=== PATIENT | female | born 1950 | race Caucasian/White ===

== ENCOUNTER 2016-05-18 21:29 | Inpatient (IN) | payer MEDICARE, OTHER ==
--- NOTE | ~2016-05-18 | DS ---
Unit #: [id number] #: [id number] Patient: MARTHA MILLER [id number] [address] [address] [id number] I MR#: [id number] NAME: MARTHA MILLER ROOM: 47 Age: 65 Sex: F Admission Date: 05/19/2016 : 1950 Discharge Date: 05/24/2016 Attending Physician: Shawn Marinelli M.D. Primary Care Physician: Alisa Negro M.D. DISCHARGE SUMMARY FINAL DIAGNOSES 1. Acute diverticulitis with history of diverticulosis. 2. Abdominal pain secondary to above, which is improved. 3. Nausea and vomiting secondary to above, which is improved. 4. Leukocytosis have improved. 5. History of coronary artery disease. 6. History of chronic bronchitis, possible chronic obstructive pulmonary disease. 7. History of percutaneous coronary intervention and stent placement in the past. 8. History of hyperlipidemia. 9. History of cataract. DISCHARGE MEDICATIONS Levaquin 750 mg p.o. daily for 4 days, Flagyl 500 mg p.o. t.i.d. for 4 days, Zofran 4 mg q.8 p.r.n. for nausea and vomiting. Please note, lisinopril is on hold because of the patient's hypotension at this time that may need to be restarted as an outpatient. Oxycodone 15 mg t.i.d. p.r.n., Zantac 150 mg daily, Crestor 40 mg q.h.s., Imdur ER 60 mg daily, tizanidine 4 mg t.i.d. p.r.n., potassium 20 mEq daily, nitroglycerin 0.4 mg sublingual p.r.n. for chest pain., albuterol nebulizer treatment q.i.d., erythromycin 250 mg daily, Spiriva 1 inhaler daily, metoprolol/hydrochlorothiazide 25/12.5 one tablet p.o. daily. CONSULTATION DURING HOSPITALIZATION Dr. Sahu from [facility]. DIAGNOSTIC STUDIES LABORATORY RESULTS: Lab workup on discharge; WBC 10.4, hemoglobin 12.2, hematocrit 38.1, platelet count of 229. BNP 77. Sodium 137, potassium 4.4, chloride 103, BUN 5, creatinine 1.0, calcium 8.6. IMAGING STUDIES: Significant imaging studies done during hospitalization was; 1. CT scan of the abdomen and pelvis, which was done on 05/18/2016, it showed inflammatory changing of the splenic flexure and proximal descending colon to a mild degree. This may reflect short segment diverticulitis, equivocal short segment diverticulitis of the sigmoid colon, appendix is normal, small hiatal hernia, gallbladder surgically absent, chronic antegrade listhesis of L5 on S1, unchanged. 2. Chest x-ray; PA and lateral, which was done most recently yesterday shows no acute finding and no significant change. Unit #: [id number] #: [id number] Patient: [facility] Ms. Martha Miller is a 65-year-old female, who was admitted to the hospital with a complaint of abdominal cramping, nausea, vomiting, and not able to the eat for the few days prior to coming to hospital. The patient was admitted to med-surg unit at [facility], [place]. The patient was diagnosed with acute diverticulitis. She was started on IV Flagyl and Levaquin. Dr. Sahu was consulted. IV Protonix also was started. Pain management was done with IV Dilaudid and antiemetic IV Zofran. The patient had a very slow recovery, but she is doing well at this time, is being discharged home on p.o. antibiotics. The patient did have hypoxia on exertion one day during hospitalization. Nebulizer treatment was given. Chest x-ray was done, which does not show any infiltrate. The patient does have COPD and is a former smoker. Advised to continue nebulizer treatment. The patient is stable from that aspect. OBJECTIVE VITAL SIGNS: On discharge, blood pressure is 124/78, respiratory rate 16, pulse is 79, temperature 98.5. CHEST: Fair air entry. No additional sounds. CVS: S1, S2 positive. Regular rhythm. ABDOMEN: Soft. Mild tenderness. DISCHARGE INSTRUCTIONS 1. The patient is being discharged home in stable condition. 2. Follow up primary care provider in [address] week[address] Sahu in 3 to 4 weeks. 4. Prescription for antibiotic has been written. Dictated by... Deborah Alonzo M.D. SLADE/clemente TD: 05/24/2016 23:32 JOB #: [id number] DISCHARGE SUMMARY Page 1 of 1 X Deborah Alonzo MD DISCHARGE SUMMARY
--- NOTE | ~2016-05-18 | CR63 ---
[facility] A Service of [facility] & [facility] RADIOLOGY TEXT RESULTS PATIENT: BIANCA MILLER LOCATION: [place] [address]- : [birth year] UNIT #: [id number] AGE: [address]: Shawn Marinelli MD SEX: F ORDER DR: [id number] [facility] [address] [place], [place] [address] [id number] I MR#: [id number] Acc #: [id number] NAME: BIANCA MILLER : 1950 SEX: F STUDY DATE/TIME: 05/23/2016 15:41 UNIT: [facility] ROOM: [facility] STUDY DESCRIPTION: CR Chest 2 View Attending Physician: Shawn Marinelli M.D. Ordering Physician: Deborah Alonzo M.D. Primary Care Physician: Alisa Negro M.D. MEDICAL IMAGING REPORT This report is preliminary unless electronic signature is present EXAM PA and lateral chest HISTORY Shortness of air and low oxygen saturation for 1 day. FINDINGS Cardiac size and pulmonary vascularity are within normal limits. Moderate diffuse bilateral interstitial prominence is similar to 10/06/2015. Mild right thoracic curve. Small, calcified mediastinal and bilateral hilar nodes. Small, calcified bilateral granulomas. IMPRESSION 1. No acute findings and no significant change compared to 10/06/2015. 2. Mild bilateral interstitial prominence could be due to mild interstitial scarring versus atelectasis or edema, but there are no focal airspace infiltrates or effusions. Dictated by... Israel Morris M.D. THIS IS AN ELECTRONICALLY VERIFIED REPORT Israel Morris M.D. at 05/23/2016 10:55 PM DFL/psc TD: 05/23/2016 21:40 JOB #: [id number] MEDICAL IMAGING REPORT Page 1 of 1 COPY
--- NOTE | ~2016-05-18 | CO ---
Unit #: [id number] #: [id number] Patient: BIANCA MILLER [id number] [address] [address] [id number] I MR#: [id number] NAME: BIANCA MILLER ROOM: 47 Age: 65 Sex: F Admission Date: 05/19/2016 : 1950 Attending Physician: Shawn Marinelli M.D. Primary Care Physician: Alisa Negro M.D. CONSULTATION REPORT REASON FOR CONSULTATION Acute diverticulitis. HISTORY OF PRESENTING ILLNESS The patient states on Tuesday she began to have intermittent abdominal cramping and pain lasting for about an hour and a half, Tuesday, Tuesday and then began persistent pain yesterday afternoon. Reports alternating bowel habits. Denies fever, chills, chest pain, shortness of breath. However, she has had a persistent cough for several months for which her primary has been treating her for bronchitis. In the ER, CT abdomen and pelvis was consistent with acute diverticulitis. She does report having had previous episodes in the past. Most recent colonoscopy was completed with Dr. Escobar in 2014. PAST MEDICAL HISTORY 1. Hypertension. 2. Asthma. 3. Coronary artery disease, status post stent placemen. 4. History of skin cancer. 5. Hyperlipidemia. 6. (1) . 7. GERD. HOME MEDICATIONS 1. Lisinopril. 2. Metoprolol. 3. Tizanidine. 4. Potassium. 5. Isosorbide. 6. Lasix. 7. Percocet. 8. Nitroglycerin as needed. 9. Crestor. 10. Erythromycin. 11. Spiriva. 12. Albuterol. 13. Ventolin. SOCIAL HISTORY The patient lives at home with her grandson. Light tobacco use. Denies alcohol or illicit drugs. FAMILY HISTORY Reviewed and noncontributory. Unit #: [id number] #: [id number] Patient: BIANCA MILLER ALLERGIES Morphine. REVIEW OF SYSTEMS A complete ten point review of systems was completed and negative except as mentioned in the HPI. PHYSICAL EXAMINATION GENERAL: The patient is a pleasant 65-year-old female, currently in no acute distress. VITAL SIGNS: Temperature is 98.7, pulse is 83, respirations 18, blood pressure 118/61. HEENT: PERRLA. NECK: Supple. CARDIAC: S1, S2. LUNGS: Clear to auscultation. ABDOMEN: Soft, rounded. Significant tenderness. Positive bowel sounds. NEURO: The patient is alert, awake, oriented x3. DIAGNOSTIC STUDIES IMAGING: CT abdomen and pelvis was completed. Again, was consistent with acute diverticulitis. LABORATORY DATA: Chemistries normal. White count 17.3, hemoglobin 12.8, hematocrit 40.0, platelets 251. ASSESSMENT AND PLAN 1. Acute diverticulitis: Continue antibiotics, IV fluids, supportive care for now. Will advance diet to clears as tolerated. Will plan on outpatient colonoscopy at a later date. 2. Hypertension. 3. Coronary artery disease. Thank you for this interesting consult. Will continue to follow. Dictated by... Ariane Rose A.P.R.N. for Marcell Jamison/trever TD: 05/20/2016 08:26 JOB #: [id number] CONSULTATION REPORT Page 1 of 1 X X CONSULTATION REPORT
--- NOTE | ~2016-05-18 | CT4 ---
[facility] A Service of [facility] & [facility] RADIOLOGY TEXT RESULTS PATIENT: BIANCA MILLER LOCATION: [facility] [id number] : [birth year] UNIT #: [id number] AGE: [address]: Shawn Marinelli MD SEX: F ORDER DR: [id number] [facility] [address] [place], [place] [address] [id number] I MR#: [id number] Acc #: [id number] NAME: BIANCA MILLER : 1950 SEX: F STUDY DATE/TIME: 05/18/2016 23:37 UNIT: [facility] ROOM: [facility] STUDY DESCRIPTION: CT Abd and Pelv Wo Cont Attending Physician: Shawn Marinelli M.D. Ordering Physician: Hardeep Taylor D.O. Primary Care Physician: Alisa Negro M.D. MEDICAL IMAGING REPORT This report is preliminary unless electronic signature is present EXAM Abdomen and pelvis CT no contrast 05/18/2016 INDICATIONS 65-year-old female with generalized abdominal pain, cramping, nausea vomiting, cough, redness and edema of the lower extremities for 3 days. TECHNIQUE Noncontrast abdomen and pelvis CT was performed. COMPARISON 12/03/2014. This CT exam was performed with one or more of the following radiation dose reduction techniques: automatic exposure control, adjustment of mA and/or kV according to patient size, and iterative reconstruction. FINDINGS Exam markedly degraded by noncontrast technique. Included lung bases demonstrate emphysematous changes and mild scarring and old healed granulomatous disease. No pericardial effusion or pleural effusions, small hiatal hernia. Aorta unremarkable. Spleen unremarkable. Right adrenal gland normal. There is a benign adenoma in the left adrenal gland unchanged. Pancreas unremarkable gallbladder surgically absent. Liver unremarkable. Kidneys demonstrate no hydronephrosis or radiopaque stone on either side. Probable partially duplicated collecting system on the right incidentally noted. CT pelvis: Bladder unremarkable. There are vascular calcifications in the pelvis. No adnexal mass or drainable fluid collection. There is diverticulosis of the colon and equivocal mild sigmoid diverticulitis. There is short-segment inflammatory change of the splenic flexure and proximal descending colon either representing short-segment diverticulitis [facility] A Service of [facility] & [facility] RADIOLOGY TEXT RESULTS PATIENT: BIANCA MILLER LOCATION: [facility] [id number] : [birth year] UNIT #: [id number] AGE: [address]: Shawn Marinelli MD SEX: F ORDER DR: or inflammatory/infectious colitis. No abscess, free air or bowel obstruction. Inguinal canals are unremarkable. There is levoscoliosis and secondary degenerative change in the thoracolumbar spine. Grade 1 antegrade listhesis of L5 on S1 unchanged. IMPRESSION 1. Inflammatory change of the splenic flexure and proximal descending colon to a mild degree. This may reflect short-segment diverticulitis or inflammatory/infectious colitis. No complicating features on CT. 2. Equivocal short-segment diverticulitis of the sigmoid colon as well without complicating features. 3. Appendix normal. 4. Small hiatal hernia. 5. Gallbladder surgically absent. 6. Chronic antegrade listhesis of L5 on S1 unchanged. Dictated by... Jordon Rosario M.D. THIS IS AN ELECTRONICALLY VERIFIED REPORT Jordon Rosario M.D. at 05/19/2016 9:53 PM Ivone TD: 05/19/2016 07:12 JOB #: [id number] MEDICAL IMAGING REPORT Page 1 of 1 COPY
--- NOTE | ~2016-05-18 | HP ---
Unit #: [id number] #: [id number] Patient: BIANCA MILLER [id number] [address] [place], [place] [address] [id number] I MR#: [id number] NAME: BIANCA MILLER ROOM: 478 Age: 65 Sex: F Admission Date: 05/19/2016 : 1950 Attending Physician: Shawn Marinelli M.D. Primary Care Physician: Alisa Negro M.D. HISTORY AND PHYSICAL CHIEF COMPLAINT Abdominal pain. HISTORY OF PRESENT ILLNESS A 65-year-old female who has multiple medical problems, is known to have diverticulosis and was doing well until Tuesday. Tuesday morning after eating, she started having abdominal cramps. It lasted about one hour, and she did the same thing on Tuesday and even on Tuesday. Yesterday, she ate a hotdog around noon and after that around 3 o'clock she started having worsening pain, worsening cramps. It was not getting better and it continued to increase. The patient came to ER for further evaluation and is being admitted to med/surg unit for acute diverticulitis. According to patient, she has been vomiting and having nausea. No complaint of fever, chills, or regurgitation. She does have constipation alternating with diarrhea most of the time. PAST MEDICAL HISTORY 1. Hypertension. 2. Asthma. 3. Coronary artery disease with a history of PCI and stent placement in the past. 4. History of skin cancer. 5. Hyperlipidemia. 6. Cataract. 7. GERD. HOME MEDICATIONS 1. Lisinopril 10 mg daily. 2. Metoprolol ER 25 mg daily. 3. Tizanidine 4 mg three times a day. 4. Potassium 20 mEq daily. 5. Isosorbide mononitrate 60 mg daily. 6. Furosemide 40 mg daily. 7. Percocet 10/325 t.i.d. p.r.n. 8. Nitroglycerin 0.4 mg sublingual p.r.n. 9. Zantac 150 mg daily. 10. Crestor 40 mg daily. 11. Erythromycin 250 mg daily. 12. Spiriva one puff inhaler daily. 13. Albuterol 3 mL nebulizer four times a day. 14. Ventolin inhaler four times a day. SOCIAL HISTORY The patient lives at home with her grandson. She does have history of Unit #: [id number] #: [id number] Patient: BIANCA MILLER smoking but for the last six to seven years she smokes only off and on. No history of alcohol abuse or drug abuse. FAMILY HISTORY Not significant. ALLERGIES Morphine which causes chest pain and itching. REVIEW OF SYSTEMS No history of dizziness. No syncopal episode. Rest is as per history of presenting illness. No history of chest pain. No palpitations. No orthopnea. No paroxysmal nocturnal dyspnea . She does have bilateral lower extremity venous stasis and has hyperpigmentation and some swelling which is chronic. PHYSICAL EXAMINATION GENERAL: The patient is lying comfortably in bed in no respiratory distress. VITAL SIGNS: Blood pressure is 118/61, respiratory rate 18, pulse is 83, temperature 98.7. On admission, patient's blood pressure was 143/98. HEENT: Eyes: Bilateral eye movements are normal. Pupils are equal and reacting to light. NECK: Supple. Trachea is in midline. No thyromegaly. CHEST: Fair air entry. No additional sounds. CARDIOVASCULAR: S1, S2 positive. Regular rhythm. ABDOMEN: Generalized tenderness is present but more on the left lower quadrant. Bowel sounds are positive. EXTREMITIES: Trace edema is present. Hyperpigmentation is present. CENTRAL NERVOUS SYSTEM: Awake, alert, oriented x3. No focal neurological deficit. DIAGNOSTIC STUDIES LABORATORY: WBC 18.7, hemoglobin 14.7, hematocrit 44.7, and platelet count 290,000. Sodium 134, potassium 4, chloride 101, BUN 14, creatinine 0.8, calcium 8.3. Urinalysis was done in ER and that showed urobilinogen 1. IMAGING: CT scan of the abdomen and pelvis shows inflammatory changes of the splenic flexure and proximal descending colon to a mild degree. Equivocal short segment diverticulitis of the sigmoid colon seen. Small hiatal hernia is seen. ASSESSMENT The patient is being admitted to med/surg unit with: 1. Acute diverticulitis. 2. Abdominal pain, secondary to above. 3. Leukocytosis, secondary to above. 4. Hypertension. 5. Hyperlipidemia. 6. Asthma. 7. History of coronary artery disease. PLAN 1. Admit to med/surg. 2. IV fluids are being started. 3. IV Flagyl 500 mg t.i.d. and Levaquin 750 mg daily is being started. 4. Dr. Sahu will be consulted. Unit #: [id number] #: [id number] Patient: BIANCA MILLER 5. IV Protonix 40 mg daily is being started. 6. Dilaudid IV 0.5 mg q.4 p.r.n. is being started. 7. IV Zofran on p.r.n. basis. 8. Home medications have been reviewed and adjusted. 9. Please refer to progress note for further orders. Dictated by Marcell Lemon TD: 05/19/2016 11:54 JOB #: [id number] HISTORY AND PHYSICAL Page 1 of 1 X Deborah Alonzo MD X HISTORY AND PHYSICAL
[~2016-05-18 21:29] MED LIST: ASPIR-TRIN325 MG PO; FLEXERIL10 MG PO; FUROSEMIDE40 MG PO; HYDROCODON-ACE1 EAC5 PO; LISINOPRIL10 MG PO; METOPROLOL SUCC25 MG PO; NITROSTAT0.4 MG SL; PRAVASTATIN SOD40 MG PO; VITAMIN D250000 UNIT PO
[2016-05-18 21:47] LABS: BASOPHIL# 0.1 X10e3 (0-0.3); BASOPHIL% 0.5 % (0-2.5); DIFF IND YES; EOSINOPHIL% 0.1 % (0.0-7.0); HEMATOCRIT 44.7 % (35.0-45.0); HEMOGLOBIN 14.7 gm/dL (12.0-16.0); LYMPHOCYTE# 1.2 X10e3 (1.0-3.5); LYMPHOCYTE% 6.6 % (17.0-45.0); MEAN CELL VOLUME 86.2 FL (83-96); MEAN CORPUSCULAR HEMOGLOBIN 28.2 PG (28-34); MEAN CORPUSCULAR HGB CONC 32.8 g/dL (30-36); MEAN PLATELET VOLUME 7.9 FL (6.5-11.5); MONOCYTE% 5.3 % (3.0-12.0); NEUTROPHIL# 16.3 X10e3 (1.5-7.1); NEUTROPHIL% 87.5 % (40-75); PLATELET COUNT 290 X10e3 (140-420); RED BLOOD COUNT 5.19 X10e (3.90-5.30); RED CELL DISTRIBUTION WIDTH 15.9 % (11.0-15.5); WHITE BLOOD COUNT 18.7 X10e3 (4.0-10.5)
[2016-05-18 22:22] LABS: URINE SOURCE CLEAN CATCH
[2016-05-18 22:24] LABS: ALBUMIN SERUM 3.9 g/dL (3.5-5.0); BILIRUBIN, DIRECT 0.1 mg/dL (0.0-0.2); BILIRUBIN,INDIRECT 0.4 mg/dL (0.0-0.9); BILIRUBIN,TOTAL 0.5 mg/dL (0.2-2.0); BUN/CREATININE RATIO 17.77; CALCIUM SERUM 9.2 mg/dL (8.4-10.2); CREATININE SERUM 0.9 mg/dL (0.6-1.4); GLOM FILT RATE Estimated 67.1 mL/min (>60); PROTEIN TOTAL SERUM 7.7 g/dL (6.0-8.3)
[2016-05-18 22:27] LABS: URINE APPEARANCE CLEAR; URINE BLOOD NEG (NEG); URINE COLOR DK YELLOW; URINE GLUCOSE NEG (NEG); URINE KETONE NEG (NEG); URINE LEUKOCYTE ESTERASE TRACE (NEG); URINE NITRATE NEG (NEG); URINE PROTEIN NEG (NEG); URINE SPECIFIC GRAVITY 1.016 (1.003-1.035)
[2016-05-18 22:30] LABS: URINE BACTERIA AUWI NEG (NEGATIVE); URINE SQUAMOUS EPITHELIAL CELL OCC /[HPF]; UWBCS1 AUWI 0-2 (0-5)
[2016-05-18 22:36] LABS: CULTURE INDICATED? NO; URINE BILIRUBIN NEG (NEG)
[2016-05-18 22:53] LABS: ANISOCYTOSIS SL; PLATELET ESTIMATE NORMAL (NORMAL); SMUDGE CELLS 2 /100
[2016-05-19 09:21] LABS: BASOPHIL# 0.1 X10e3 (0-0.3); BASOPHIL% 0.4 % (0-2.5); DIFF IND NO; EOSINOPHIL# 0.1 X10e3 (0-0.7); EOSINOPHIL% 0.3 % (0.0-7.0); HEMOGLOBIN 12.8 gm/dL (12.0-16.0); LYMPHOCYTE% 11.5 % (17.0-45.0); MEAN CELL VOLUME 87.2 FL (83-96); MEAN CORPUSCULAR HEMOGLOBIN 27.8 PG (28-34); MEAN CORPUSCULAR HGB CONC 31.9 g/dL (30-36); MONOCYTE# 1.3 X10e3 (0-1.0); MONOCYTE% 7.7 % (3.0-12.0); NEUTROPHIL# 13.8 X10e3 (1.5-7.1); NEUTROPHIL% 80.1 % (40-75); PLATELET COUNT 251 X10e3 (140-420); RED BLOOD COUNT 4.59 X10e (3.90-5.30); RED CELL DISTRIBUTION WIDTH 15.6 % (11.0-15.5); WHITE BLOOD COUNT 17.3 X10e3 (4.0-10.5)
[2016-05-19 09:46] LABS: BUN/CREATININE RATIO 17.5; CALCIUM SERUM 8.3 mg/dL (8.4-10.2); CREATININE SERUM 0.8 mg/dL (0.6-1.4); GLOM FILT RATE Estimated 77.4 mL/min (>60)
[2016-05-19] MEDS ORDERED: LISINOPRIL10 MG PO (10:55)
[2016-05-19] MEDS ORDERED: METOPROLOL ER-1 EACH PO (10:56)
[2016-05-19] MEDS ORDERED: TIZANIDINE HCL4 M1 PO (10:57)
[2016-05-19] MEDS ORDERED: K-TAB ER20 MEQ PO (10:57)
[2016-05-19] MEDS ORDERED: IMDUR-ER60 M1 PO (10:58)
[2016-05-19] MEDS ORDERED: ERYTHROMYCIN250 M1 PO (11:04)
[2016-05-19] MEDS ORDERED: OXYCODONE HCL15 MG PO (11:05)
[2016-05-19] MEDS ORDERED: NITROGLYGERIN0.4 MG SL (11:06)
[2016-05-19] MEDS ORDERED: ZANTAC150 M1 PO (11:06)
[2016-05-19] MEDS ORDERED: CRESTOR40 MG PO (11:07)
[2016-05-19] MEDS ORDERED: SPIRIVA RESPIMAT4 G1 INH (11:07)
[2016-05-19] MEDS ORDERED: ALBUTEROL MININEB NEB (11:08)
[2016-05-19] MEDS ORDERED: ALBUTEROL17 GM INH (11:08)
[2016-05-20 03:44] LABS: HEMATOCRIT 42.7 % (35.0-45.0); HEMOGLOBIN 13.6 gm/dL (12.0-16.0); MEAN CELL VOLUME 88.2 FL (83-96); MEAN CORPUSCULAR HGB CONC 31.7 g/dL (30-36); MEAN PLATELET VOLUME 7.8 FL (6.5-11.5); RED BLOOD COUNT 4.85 X10e (3.90-5.30); RED CELL DISTRIBUTION WIDTH 16.6 % (11.0-15.5); WHITE BLOOD COUNT 14.3 X10e3 (4.0-10.5)
[2016-05-20 04:20] LABS: CALCIUM SERUM 8.9 mg/dL (8.4-10.2); CREATININE SERUM 0.9 mg/dL (0.6-1.4); GLOM FILT RATE Estimated 67.1 mL/min (>60); POTASSIUM 3.8 mmol/L (3.5-5.1)
[2016-05-21 05:36] LABS: BASOPHIL% 0.4 % (0-2.5); EOSINOPHIL# 0.1 X10e3 (0-0.7); EOSINOPHIL% 1.1 % (0.0-7.0); HEMATOCRIT 38.4 % (35.0-45.0); HEMOGLOBIN 12.4 gm/dL (12.0-16.0); LYMPHOCYTE# 2.1 X10e3 (1.0-3.5); LYMPHOCYTE% 18.8 % (17.0-45.0); MEAN CELL VOLUME 87.6 FL (83-96); MEAN CORPUSCULAR HEMOGLOBIN 28.3 PG (28-34); MEAN CORPUSCULAR HGB CONC 32.3 g/dL (30-36); MEAN PLATELET VOLUME 7.6 FL (6.5-11.5); MONOCYTE# 1.1 X10e3 (0-1.0); MONOCYTE% 9.7 % (3.0-12.0); NEUTROPHIL# 7.8 X10e3 (1.5-7.1); PLATELET COUNT 228 X10e3 (140-420); RED BLOOD COUNT 4.38 X10e (3.90-5.30); WHITE BLOOD COUNT 11.2 X10e3 (4.0-10.5)
[2016-05-21 05:42] LABS: DIFF IND NO
[2016-05-22 04:16] LABS: HEMATOCRIT 37.3 % (35.0-45.0); HEMOGLOBIN 11.7 gm/dL (12.0-16.0); MEAN CELL VOLUME 88.2 FL (83-96); MEAN CORPUSCULAR HEMOGLOBIN 27.8 PG (28-34); MEAN CORPUSCULAR HGB CONC 31.5 g/dL (30-36); MEAN PLATELET VOLUME 7.9 FL (6.5-11.5); RED BLOOD COUNT 4.23 X10e (3.90-5.30); RED CELL DISTRIBUTION WIDTH 16.1 % (11.0-15.5); WHITE BLOOD COUNT 11.2 X10e3 (4.0-10.5)
[2016-05-22 04:33] LABS: CALCIUM SERUM 8.6 mg/dL (8.4-10.2); GLOM FILT RATE Estimated 59.1 mL/min (>60); POTASSIUM 4.4 mmol/L (3.5-5.1)
[2016-05-24 04:10] LABS: BASOPHIL% 0.4 % (0-2.5); EOSINOPHIL# 0.2 X10e3 (0-0.7); EOSINOPHIL% 1.9 % (0.0-7.0); HEMATOCRIT 38.1 % (35.0-45.0); LYMPHOCYTE# 2.2 X10e3 (1.0-3.5); LYMPHOCYTE% 21.1 % (17.0-45.0); MEAN CELL VOLUME 88.4 FL (83-96); MEAN CORPUSCULAR HEMOGLOBIN 27.9 PG (28-34); MEAN CORPUSCULAR HGB CONC 31.5 g/dL (30-36); MEAN PLATELET VOLUME 7.8 FL (6.5-11.5); MONOCYTE# 1.1 X10e3 (0-1.0); MONOCYTE% 10.4 % (3.0-12.0); NEUTROPHIL# 6.9 X10e3 (1.5-7.1); NEUTROPHIL% 66.2 % (40-75); PLATELET COUNT 229 X10e3 (140-420); RED BLOOD COUNT 4.31 X10e (3.90-5.30); WHITE BLOOD COUNT 10.4 X10e3 (4.0-10.5)
[2016-05-24 04:11] LABS: DIFF IND NO
[2016-05-24] MEDS ORDERED: FLAGYL PO (11:37)
[2016-05-24] MEDS ORDERED: LEVAQUIN750 M1 PO (11:37)
[2016-05-24] MEDS ORDERED: ZOFRAN PO (11:38)
[2016-08-16] MEDS ORDERED: METOPROLOL SUCC25 MG PO (15:57)
[2016-08-16] MEDS ORDERED: LASIX PO (15:58)
[2016-08-16] MEDS ORDERED: VITAMIN D350000 UNIT PO (15:58)
[2016-08-16] MEDS ORDERED: ZESTRIL10 M1 PO (15:59)
== END 2016-05-24 12:44 | disposition home or self-care (01) | DRG 392 ==
LOC: CED 21:29 → CEDOF 05-19 01:02 → C4C 05-19 03:57
PROVIDERS: Emergency Medicine; Hospitalist; Internal Medicine; Physician Assistant Medical
DX: K57.92 Diverticulitis of intestine, part unspecified, without perforation or abscess without bleeding (principal); I95.9 Hypotension, unspecified; I10 Essential (primary) hypertension; I25.10 Atherosclerotic heart disease of native coronary artery without angina pectoris; J45.909 Unspecified asthma, uncomplicated; Z95.5 Presence of coronary angioplasty implant and graft; K21.9 Gastro-esophageal reflux disease without esophagitis; Z85.828 Personal history of other malignant neoplasm of skin; H26.9 Unspecified cataract; F17.210 Nicotine dependence, cigarettes, uncomplicated; D72.829 Elevated white blood cell count, unspecified; J44.9 Chronic obstructive pulmonary disease, unspecified; E78.5 Hyperlipidemia, unspecified
CPT/HCPCS: 36415; 71020; 74176; 80048; 80076; 81003; 83690; 83880; 85025; 85027; 94640; 94664; 94760; 96365; 96375; 97116; 97163; 99285; C9113; G8978-GP; G8979-GP; G8980-GP; J1170; J1956; J2405; J2550

== ENCOUNTER → 2016-08-25 | Day surgery (SDC) | payer MEDICARE, OTHER ==
[~2016-08-25] MED LIST changes: +ALBUTEROL MININEB NEB; +ALBUTEROL17 GM INH; +CRESTOR40 MG PO; +ERYTHROMYCIN250 M1 PO; +FLAGYL PO; +IMDUR-ER60 M1 PO; +K-TAB ER20 MEQ PO; +LASIX PO; +LEVAQUIN750 M1 PO; +METOPROLOL ER-1 EACH PO; +NITROGLYGERIN0.4 MG SL; +OXYCODONE HCL15 MG PO; +SPIRIVA RESPIMAT4 G1 INH; +TIZANIDINE HCL4 M1 PO; +VITAMIN D350000 UNIT PO; +ZANTAC150 M1 PO; +ZESTRIL10 M1 PO; +ZOFRAN PO
--- NOTE | ~2016-08-25 | OR ---
Unit #: [id number] #: [id number] Patient: BIANCA MILLER [id number] [address] [place], [place] [address] [id number] MR#: [id number] NAME: BIANCA MILLER ROOM: Date of Procedure: 08/25/2016 Admission Date: 08/25/2016 Surgeon: Raghavendra Sahu M.D. : 1950 Attending Physician: Raghavendra Sahu M.D. Primary Care Physician: Alisa Negro M.D. OPERATIVE REPORT PROCEDURES PERFORMED Esophagogastroduodenoscopy with biopsy and colonoscopy to cecum. INDICATIONS FOR PROCEDURE The patient with chronic GERD symptoms, right upper quadrant pain as well as history of polyps undergoing evaluation with upper endoscopy and colonoscopy. MEDICATIONS Monitored anesthesia. POSTOPERATIVE FINDINGS 1. Hiatal hernia. 2. Esophageal ring that is acquired. 3. Small ulcer in the hernia sac, biopsies taken. 4. Gastritis with erosions, biopsies taken. 5. Normal duodenum and distal duodenum. 6. Colonoscopy was completed to cecum with good prep. 7. Diverticulosis. 8. Moderate internal hemorrhoids. 9. No polyps, masses, or colitis. PLAN 1. Symptomatic treatment. PPI therapy assisted. 2. Avoid NSAIDS. 3. Consider right upper quadrant ultrasound as well as CT scan of the abdomen. DESCRIPTION OF PROCEDURE The patient was explained of the procedure, risks, and benefits along with risks and benefits of anesthesia. She was brought to the endoscopy room. Propofol anesthesia was given. Bite block was placed. The scope was passed down the mouth into the esophagus, stomach, duodenum, and distal duodenum. Findings as described. Biopsies taken. Gently, I pulled the scope out of the patient's mouth. She tolerated it well. At this time, she was turned around and repositioned for colonoscopy. Rectal exam was done, which was normal. Colonoscope was lubricated, passed up the rectum, advanced under direct vision all the way to the cecum. Cecum was identified by ileocecal valve and appendiceal orifice. No polyps, masses, or colitis was seen. Findings as described above. I retroflexed in the rectum, internal hemorrhoids noted. Gently, I pulled Unit #: [id number] #: [id number] Patient: GILBERT,BIANCA the scope out of the patient's mouth. She tolerated it well. Dictated by... Marcell Jamison/clemente TD: 08/25/2016 13:21 JOB #: [id number] CC: Willian Negro M.D. OPERATIVE REPORT Page 1 of 1 X Raghavendra Sahu MD X PROCEDURE OPERATIVE NOTE
== END | disposition home or self-care (01) ==
LOC: COPS 08:58
DX: Z12.11 Encounter for screening for malignant neoplasm of colon (principal); K29.50 Unspecified chronic gastritis without bleeding; K44.9 Diaphragmatic hernia without obstruction or gangrene; K22.2 Esophageal obstruction; K57.30 Diverticulosis of large intestine without perforation or abscess without bleeding; K64.8 Other hemorrhoids; E66.9 Obesity, unspecified; I25.2 Old myocardial infarction; I10 Essential (primary) hypertension; J45.909 Unspecified asthma, uncomplicated; F17.210 Nicotine dependence, cigarettes, uncomplicated; Z86.010 Personal history of colon polyps; Z87.442 Personal history of urinary calculi; Z87.01 Personal history of pneumonia (recurrent); Z88.6 Allergy status to analgesic agent; Z90.49 Acquired absence of other specified parts of digestive tract; Z95.5 Presence of coronary angioplasty implant and graft; Z98.890 Other specified postprocedural states; Z79.2 Long term (current) use of antibiotics; Z79.891 Long term (current) use of opiate analgesic; Z79.899 Other long term (current) drug therapy; Z79.51 Long term (current) use of inhaled steroids
CPT/HCPCS: 43239; G0105; 88305; 88312

== ENCOUNTER 2016-08-31 14:51 | Inpatient (IN) | payer MEDICARE, OTHER ==
[~2016-08-31] VITALS: Ht 165.1 cm; Wt 111.2 kg
--- NOTE | ~2016-08-31 | CO ---
Unit #: [id number] #: [id number] Patient: BIANCA MILLER [id number] [address] [address] [id number] I MR#: [id number] NAME: BIANCA MILLER ROOM: 303 Age: 66 Sex: F Admission Date: 08/31/2016 : 1950 Attending Physician: Deborah Alonzo M.D. Primary Care Physician: Alisa Negro M.D. CONSULTATION REPORT REASON FOR CONSULTATION Left lower lobe pneumonia, possible. CHIEF COMPLAINT AND HISTORY OF PRESENT ILLNESS This patient basically is a 66-year-old female with a past medical history significant for obstructive sleep apnea and likely COPD, history of chronic bronchitis, coronary artery disease, history of cataract and skin cancer, who presents with the complaint of abdominal pain, diagnosed with acute pancreatitis, currently on TPN, complaining of left-sided chest discomfort with coughing and significant shortness of breath. I am seeing her at the bedside. She denies any nausea, vomiting, diarrhea and does complain of abdominal pain. PAST MEDICAL HISTORY Obstructive sleep apnea, COPD, coronary artery disease, diverticulosis, dyslipidemia, cataract, skin cancer and gastroesophageal reflux disease. SOCIAL HISTORY The patient quit smoking seven years ago. No alcohol. No drug abuse. FAMILY HISTORY None as per record. MEDICATION As per MAR, has been reviewed. REVIEW OF SYSTEMS Positive pallor. No edema. No signs of any jaundice. The rest are as per history of present illness. The rest of a 12-point review of systems has been reviewed and is negative. PHYSICAL EXAMINATION VITAL SIGNS: Currently, her temperature is 98. Pulse is 74. Respiration 16. Blood pressure 121/70. DIAGNOSTIC STUDIES LABORATORY: BUN and creatinine 6 and 0.05. Amylase is 205 and lipase is 190. Her white count is 15, hemoglobin 11, hematocrit 35. Platelet count is 215. IMAGING: CT abdomen showed left lower lobe effusion and atelectasis. The patient is currently on Zosyn. ASSESSMENT Unit #: [id number] #: [id number] Patient: BIANCA MILLER 1. Acute pancreatitis. 2. Left lower lobe atelectasis, possible pneumonia with some effusion. 3. Obstructive sleep apnea and COPD. PLAN At this point, our plan is to switch the IV antibiotics to meropenem 500 mg IV q.8 hours, discontinue Zosyn, continue oxygen, bronchodilator, CPAP at night, pain management, IV fluid, TPN. The patient will be closely monitored. Please see orders for detailed plan. Thank you very much for this consultation. Dictated by.Jake. Marcell Dale TD: 09/05/2016 15:24 JOB #: [id number] CONSULTATION REPORT Page 1 of 1 X Dario Vasquez MD CONSULTATION REPORT
--- NOTE | ~2016-08-31 | FU ---
[facility] Nutrition Therapy DATE: 09/06/16 Patient: BIANCA MILLER Physician: MIRIAN Address: [address] Room/Bed: [address] [place] [address], Zip: [place] [address] Admit Date: 08/31/16 Date of : [birth year] Height: 5 5 Weight: 244 111 NUTRITION MONITORING/FOLLOW-UP: Reason: TPN follow-up Anthropometrics: ht: 5'5" wt: 244# (111 kg) BMI 36 -Admit weight 238# (108 kg) Labs: Glu 152, BUN 6, Alb 2.5, Accuchecks 111-151, Amlyase 195, Lipase 162, triglycerides 138 (09/04/2016) Meds: TPN (dextrose 25%), clinimix- k+ phos, NaCl, KCl, gluconate; novolog, protonix I&O's: 4791/8879. BM 09/02 Skin: previously noted. Edema: pedal/ankle- trace Estimated Nutrition Needs: 2060-8124 kcal (20-25 kcal/kg) 108-140 g protein (1.0-1.3 g/kg) fluids consistent with kcals or per MD Assessment: Chart reviewed, events noted. Pt seen for TPN follow-up. Pt is currently receiving TPN (dextrose 25%) at 60 mL/hr x 24 hours. Pt is lethargic and not appropriate for nutrition interview at this time. Per chart, the pt's TPN rate is to be increased to 70 mL/hr. No reports of TPN intolerance, see labs above. RD will continue to follow. Dx: Inadequate oral intake r/t current condition, pancreatitis AEB NPO status -IN PROGRESS Intervention: 1. NPO 2. TPN Monitoring, Evaluation and Goals: 1. TPN; once initiated, provide >80% of goal -NOT MET 2. Labs; amylase (not improved), lipase (not improved), triglycerides (not improved/unmeasured) 3. GI; promote regular GI function -NOT MET Recommendations: 1. GRADUALLY increase current TPN (dextrose 25%) to goal rate of 95 mL/hr x 24 hours to provide patient with adequate calories and protein. This rate will provide 1938 non-protein kcal, 2394 total kcal, and 114 g protein. [facility] Nutrition Therapy DATE: 09/06/16 Patient: BIANCA MILLER Physician: MIRIAN Address: [address] [facility] Room/Bed: [address] [place] [address], Zip: [place] [address] Admit Date: 08/31/16 Date of : [birth year] Height: 5 5 Weight: 244 111 2. Continue to monitor glucose and electrolytes. 3. Obtain updated triglyceride level to determine lipid needs. Not recommending lipids at this time d/t pancreatitis. 4. Once medically feasible, advance the pt to a clear liquid diet as tolerated. RD will f/u per protocol as pt is at moderate/severe nutritional risk. Respectfully, MANUEL CORDERO, email marketing intern Keara Navarrete MS, RD, LD [facility] cc: client file
--- NOTE | ~2016-08-31 | CR72 ---
[facility] A Service of [facility] & [facility] RADIOLOGY TEXT RESULTS PATIENT: BIANCA MILLER LOCATION: [facility] 303- : 50 UNIT #: [id number] AGE: [address]: Deborah Alonzo MD SEX: F ORDER DR: [id number] [facility] [address] [place], [place] [address] [id number] I MR#: [id number] #: [id number] NAME: BIANCA MILLER : 1950 SEX: F STUDY DATE/TIME: 09/06/2016 6:31 UNIT: [address] ROOM: [facility] STUDY DESCRIPTION: CR Chest Single View Portable Attending Physician: Deborah Alonzo M.D. Ordering Physician: Dario Vasquez M.D. Primary Care Physician: Alisa Negro M.D. MEDICAL IMAGING REPORT This report is preliminary unless electronic signature is present EXAM Portable chest, 09/06 COMPARISON 05/23/2016 HISTORY Cough, shortness of air and left-sided chest pain for 6 days. FINDINGS A portable view of the chest was obtained. There are low lung volumes with left base atelectasis or infiltrate. The PIC catheter has its tip in the superior vena cava. IMPRESSION There is increased density in the left base consistent with minimal atelectasis or infiltrate, otherwise there is no active disease. Dictated by... David Monzon M.D. THIS IS AN ELECTRONICALLY VERIFIED REPORT David Monzon M.D. at 09/06/2016 11:40 AM Shaq TD: 09/06/2016 10:45 JOB #: [id number] MEDICAL IMAGING REPORT Page 1 of 1 COPY
--- NOTE | ~2016-08-31 | CR2 ---
[facility] A Service of [facility] RADIOLOGY TEXT RESULTS PATIENT: BIANCA MILLER LOCATION: [facility] 303-01 : 50 UNIT #: [id number] AGE: [address]: Deborah Alonzo MD SEX: F ORDER DR: [id number] [facility]. [place], [place] [address] [id number] I MR#: [id number] Acc #: [id number] NAME: BIANCA MILLER : 1950 SEX: F STUDY DATE/TIME: [facility] STUDY DESCRIPTION: CR Abdomen Acute Series Attending Physician: Deborah Alonzo M.D. Ordering Physician: Arpit Rick M.D. Primary Care Physician: Alisa Negro M.D. MEDICAL IMAGING REPORT This report is preliminary unless electronic signature is present EXAM Acute abdomen series 09/08/2016 0745 hours HISTORY 66-year-old with history of pancreatitis, complaining of abdominal pain and shortness of air since April 2016. History of diabetes. COMPARISON CT abdomen 09/03/2016 FINDINGS Upright chest and supine and upright views of the abdomen are performed. There is a right PICC line with tip in SVC just above the right atrium. Lung volumes are low. There is persistent left basilar density likely a combination of consolidation and pleural fluid. This appears similar to CT scan 09/03/2016. The abdominal films demonstrate a nonspecific bowel gas pattern without obstruction. No free air seen. IMPRESSION Persistent left basilar density which is a combination of pleural fluid and consolidation similar to CT abdomen 09/03/2016. There is a nonspecific bowel gas pattern. No obstruction or free air seen. Dictated by... Lilli Moffett M.D. THIS IS AN ELECTRONICALLY VERIFIED REPORT Lilli Moffett M.D. at 09/08/2016 9:02 PM SMM/dillan TD: 09/08/2016 15:34 [facility] A Service of [facility] RADIOLOGY TEXT RESULTS PATIENT: BIANCA MILLER LOCATION: [facility] 303-01 : 50 UNIT #: [id number] AGE: [address]: Deborah Alonzo MD SEX: F ORDER DR: JOB #: [id number] MEDICAL IMAGING REPORT Page 1 of 1 COPY
--- NOTE | ~2016-08-31 | CO ---
Unit #: [id number] #: [id number] Patient: BIANCA MILLER [id number] [facility]. [place], [place] [address] [id number] I MR#: [id number] NAME: BIANCA MILLER ROOM: 303 Age: 66 Sex: F Admission Date: 08/31/2016 : 1950 Attending Physician: Deborah Alonzo M.D. Primary Care Physician: Alisa Negro M.D. Consultation Date: 09/04/2016 CONSULTATION REPORT HISTORY OF PRESENT ILLNESS Ms. Miller is a 66-year-old white female, presented with what appears to be pancreatitis of the tail of the pancreas with possible splenic vein thrombosis with increased mid epigastric left upper quadrant abdominal pain. She had colonoscopy, but 10 days ago which showed diverticular disease. She did have a recent bout of diverticulitis in April, requiring just intravenous antibiotics. The patient also has had previous GI issues with bowel obstruction and previous appendectomy and cholecystectomy. PAST MEDICAL HISTORY See notes. ALLERGIES She is allergic to morphine. HOME MEDICATIONS Noted and listed. PHYSICAL EXAMINATION Cooperative, alert white female. 2 to 3+ midepigastric left upper quadrant tenderness with slight guarding. PLAN At this time, it appears that the patient needs better pain control for her pancreatitis. I would continue the TPN. We will discuss do not think at this point in time she needs any surgical intervention, although, is still a possibility. We will follow very closely. Dictated by... Marcell Maciel/clemente TD: 09/06/2016 12:52 JOB #: [id number] Unit #: [id number] #: [id number] Patient: BIANCA MILLER CONSULTATION REPORT Page 1 of 1 X Andrew Valentine MD X CONSULTATION REPORT
--- NOTE | ~2016-08-31 | CT7 ---
[facility] A Service of [facility] & [facility] RADIOLOGY TEXT RESULTS PATIENT: BIANCA MILLER LOCATION: [facility] 303-01 : 50 UNIT #: [id number] AGE: [address]: Deborah Alonzo MD SEX: F ORDER DR: [id number] [facility] [address] [facility]. [place], [place] [address] [id number] I MR#: [id number] Acc #: [id number] NAME: BIANCA MILLER : 1950 SEX: F STUDY DATE/TIME: 09/08/2016 22:10 UNIT: C3A PCU ROOM: 303 STUDY DESCRIPTION: CT Abdomen Wo Cont Attending Physician: Deborah Alonzo M.D. Ordering Physician: Raghavendra Sahu M.D. Primary Care Physician: Alisa Negro M.D. MEDICAL IMAGING REPORT This report is preliminary unless electronic signature is present EXAM CT abdomen without contrast. INDICATIONS Upper abdominal pain since 08/25/2016 with nausea. PROCEDURE Unenhanced CT of the abdomen. This CT exam was performed with one or more of the following radiation dose reduction techniques: automatic exposure control, adjustment of mA and/or kV according to patient size, and iterative reconstruction. COMPARISON 09/03/2016 FINDINGS Small left pleural effusion is slightly smaller than on the prior and there is persistent, but improving, atelectasis in the left lung base. There are several scattered low-attenuation lesions throughout the liver. These were not seen on the previous study. Indexed lesion in the inferior right lobe in segment 6 measures 2.3 cm. Second indexed lesion towards the dome of the liver measures 1.7 cm. The spleen, kidneys, adrenal glands show no acute abnormality. Previous cholecystectomy. Redemonstration of inflammatory change in the left upper quadrant, probably related to acute pancreatitis in the tail of the pancreas. There are organizing pseudocysts in the left upper quadrant, which are new. One pseudocyst in the gastrosplenic ligament measures up to a 10.1 cm. The bowel loops are nondilated. No aggressive appearing bone lesion. [facility] A Service of [facility] & [facility] RADIOLOGY TEXT RESULTS PATIENT: BIANCA MILLER LOCATION: [facility] 303-01 : 50 UNIT #: [id number] AGE: [address]: Deborah Alonzo MD SEX: F ORDER DR: IMPRESSION 1. Redemonstration inflammatory change left upper quadrant of the abdomen probably related to acute pancreatitis in the tail of the pancreas. There are organized pseudocysts in the left upper quadrant new compared with the prior and detailed above. 2. Multifocal new hypodense lesions scattered throughout the liver, nonspecific, but their rapid development favors against malignancy. These could represent multifocal hepatic abscesses. They would be better characterized with contrast enhanced CT or MRI. 3. Other findings detailed above. 1. Dictated by... Ganesh Holguin M.D. THIS IS AN ELECTRONICALLY VERIFIED REPORT Ganesh Holguin M.D. at 09/09/2016 9:54 PM BEV/yony TD: 09/09/2016 07:47 JOB #: [id number] MEDICAL IMAGING REPORT Page 1 of 1 COPY
--- NOTE | ~2016-08-31 | FU ---
[facility] Nutrition Therapy DATE: 09/09/16 Patient: BIANCA MILLER Physician: MIRIAN Address: [address] Room/Bed: [address] [place] [address], Zip: [place] [address] Admit Date: 08/31/16 Date of : 50 Height: 5 5 Weight: 245 111.2 NUTRITION MONITORING/FOLLOW-UP: Reason: TPN follow-up Admitting Dx: 66 y/o female admitted with acute pancreatitis Anthropometrics: Ht: 65", admission wt: 108 kg, current wt: 111.2 kg, BMI: 39 (stage II obese; based on admission wt) Labs: Glucose 169, POC 151-183, Prealbumin 5.0 (09/04), Triglycerides 117 (09/08; WNL), amylase 187 (trending down), lipase 116 (trending down), Alk phos 127, lytes WNL Meds: TPN + clinimix, Vit D, IV Levaquin, Kphos, Kcl, Nacl, phenergan prn, gluconate, novolog (low SSI), protonix GI: BM 09/06, reports abdominal pain/nausea with clear liquids this AM Skin: No change, trace edema BLE Estimated Nutrition Needs: 5145-0359 kcals/day (20-25 kcals/kg admission weight) 108-140 g protein/day (1-1.3 g/kg admission weight) Fluids per MD Assessment: Chart reviewed, events noted. Oral diet advanced to clear liquids 2 days ago (09/07) however the patient reports only tolerating sips of juice and bites of jello with resulting abdominal pain and nausea. 09/08 pharmacy note reviewed- patient continues on same TPN regimen with 25% dextrose, 5% AA solution, now at goal rate of 95 ml/hr per RD recommendations. Mild hyperglycemia noted, lytes WNL. Pharmacy noted lipids being held due to pancreatitis, however IV lipids do not stimulate the pancreas and triglycerides are WNL, so no need to hold lipids. Suggest cycling 20% 250 ml lipids q 48-72 hours to prevent fatty acid deficiency, as the patient has been on TPN approx. 9 days. Ideally, the patient would have an NJ tube. See nutrition dx, goals and RD recs below. Alessandro eval has been placed. Will continue to follow. Dx: Inadequate oral intake r/t acute pancreatitis AEB not tolerating clear liquids, need for TPN - ACTIVE Intervention: NJT placement, decrease TPN goal rate and add lipids Monitoring, Evaluation and Goals: 1. TPN to provide > 80% estimated nutritional needs - MET [facility] Nutrition Therapy DATE: 09/09/16 Patient: BIANCA MILLER Physician: MIRIAN Address: [address] [place] [address] Room/Bed: [address] [place] [address], Zip: [place] [address] Admit Date: 08/31/16 Date of : [birth year] Height: 5 5 Weight: 245 111.2 2. Labs; lytes will remain WNL, glucose < 200 mg/dL, lipase/amylase will continue to improve, LFT's/triglycerides will remain WNL, prealbumin will improve -IN PROGRESS 3. PO diet tolerance will improve - NEW GOAL 4. GI function will normalize - NOT MET, IN PROGRESS Monitor: Per protocol, criteria to determine if above goals met Recommendations: 1. Suggest placing NJ tube and starting trickle feeds with Jevity 1.5 @ 20 ml/hr. If tolerated, increase rate by 10 ml q 12 hours until goal rate of 70 ml/hr is reached, to provide 2520 kcals, 113 g protein and 1277 ml water. Free water flushes per MD once at goal rate. As EN rate increases, decrease TPN rate accordingly. 2. Decrease TPN to new goal rate of 90 ml/hr and add 20% 250 ml IV lipids q 48-72 hours to prevent fatty acid deficiency. Triglycerides are WNL and IV lipids do not stimulate the pancreas. This TPN regimen will provide: -1836 dextrose kcals (GUR = 3.5) -108 g protein (1.0 g/kg) -2268 total kcals (21 kcals/kg) -Additional 500 kcals from lipids on lipid days 3. Continue to trial clear liquids. Advance to full liquids, then low-fat diet as tolerated per MD. If patient begins tolerating clear liquids better suggest adding Ensure Clear BID to provide additional protein. 4. Optimize insulin regimen to promote adequate blood glucose control. Consider changing SSI to medium correction scale if hyperglycemia persists. 5. Replace lytes prn and continue to monitor triglycerides, lipase, amylase, LFT's and prealbumin. Status: Moderate nutrition risk Respectfully, Jesika Engel RD, LD [facility] Nutrition Therapy DATE: 09/09/16 Patient: BIANCA MILLER Physician: MIRIAN [facility] Room/Bed: [address] [place] [address], Zip: [place] [address] Admit Date: 08/31/16 Date of : [birth year] Height: 5 5 Weight: 245 111.2 Food and Nutritional Services [facility] cc: client file
--- NOTE | ~2016-08-31 | US6 ---
[facility] A Service of [facility] & [facility] RADIOLOGY TEXT RESULTS PATIENT: BIANCA MILLER LOCATION: [facility] 303- : 50 UNIT #: [id number] AGE: [address]: Deborah Alonzo MD SEX: F ORDER DR: [id number] [facility] [address] [facility]. [place], [place] [address] [id number] I MR#: [id number] #: [id number] NAME: BIANCA MILLER : 1950 SEX: F STUDY DATE/TIME: 09/03/2016 12:45 UNIT: [address] ROOM: [facility] STUDY DESCRIPTION: US Abdominal Limited Attending Physician: Deborah Alonzo M.D. Ordering Physician: Deborah Alonzo M.D. Primary Care Physician: Alisa Negro M.D. MEDICAL IMAGING REPORT This report is preliminary unless electronic signature is present EXAM Right upper quadrant ultrasound, 09/03/2016. HISTORY Right upper quadrant abdominal pain for 8 years worsening in the past 4 days. FINDINGS The liver demonstrates an increase in echotexture with attenuation of the ultrasound beam characteristic of fatty infiltration. The gallbladder is surgically absent. There is mild intra and extrahepatic biliary ductal dilatation with the common duct reaching a maximum diameter of 1 cm. No obstructing mass or calculus is seen but the distal aspect of the common duct is obscured by bowel gas. If there is clinical concern for choledocholithiasis consider correlation with MRCP. The pancreas is normal in appearance. The right kidney is normal. IMPRESSION 1. Status post cholecystectomy with mild intra and extrahepatic biliary ductal dilatation of unknown etiology. No obstructing mass or calculus is seen but the distal aspect of the common bile duct is obscured by bowel gas. Clinical correlation is recommended. Consider correlation with MRCP. 2. Fatty infiltration of the liver. STAT * RESULT Dictated by... Abelardo Nunes M.D. THIS IS AN ELECTRONICALLY VERIFIED REPORT [facility] A Service of [facility] RADIOLOGY TEXT RESULTS PATIENT: BIANCA MILLER LOCATION: [facility] 303-01 : [birth year] UNIT #: [id number] AGE: [address]: Deborah Alonzo MD SEX: F ORDER DR: Abelardo Nunes M.D. at 09/03/2016 5:05 PM EZEKIEL/marcela TD: 09/03/2016 16:01 JOB #: [id number] MEDICAL IMAGING REPORT Page 1 of 1 COPY
--- NOTE | ~2016-08-31 | DS ---
Unit #: [id number] #: [id number] Patient: MARTHA MILLER [id number] [place], [place] [address] [id number] I MR#: [id number] NAME: MARTHA MILLER ROOM: 303 Age: 66 Sex: F Admission Date: 08/31/2016 : 1950 Discharge Date: 09/09/2016 Attending Physician: Deborah Alonzo M.D. Primary Care Physician: Alisa Negro M.D. DISCHARGE SUMMARY FINAL DIAGNOSES 1. Acute severe pancreatitis. 2. 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 3. Possible liver abscesses versus metastasis. 4. Splenic vein thrombosis. 5. Acute hypoxic respiratory failure. 6. Pneumonia. 7. Anemia. 8. Morbid obesity. 9. History of coronary artery disease, status post percutaneous coronary intervention and stent placement. 10. History of hyperlipidemia. 11. History of gastroesophageal reflux disease and hiatal hernia. 12. History of diverticulosis. DISCHARGE MEDICATIONS 1. Total parenteral nutrition. Patient is n.p.o. and is on TPN at this time. 2. Levaquin 750 mg q.24 hours. 3. Vitamin D 50,000 units weekly. 4. Nitroglycerin 0.4 mg sublingual p.r.n. for chest pain. 5. Imdur ER 60 mg daily. 6. Sodium chloride nebulizer treatment every 8 hours. 7. Potassium 20 mEq daily. 8. IV Protonix 40 daily. 9. IV Dilaudid 1-2 mg q.3 p.r.n. for pain. 10. Accu-Cheks a.c. and at bedtime with low-dose sliding scale. 11. Zestril 10 mg daily. 12. Lipitor 80 mg daily. 13. Toprol 25 mg every evening. 14. Zofran 4 mg IV q.4 p.r.n. for nausea and vomiting. 15. Lovenox 40 mg subcutaneous daily. 16. Spiriva 18 mcg inhaler daily. 17. Albuterol nebulizer treatment q.i.d. and q.[address] Dr. Dario Vasquez and Dr. Comer from pulmonary services. 2. Dr. Andrew Valentine from [facility]. 3. Dr. Raghavendra Sahu from GI services. DIAGNOSTIC STUDIES LABORATORY ON DISCHARGE: Sodium 139, potassium 4.4, chloride 102, BUN 13, creatinine 0.6, alkaline phosphatase 127, AST 33, and ALT 25. Lipase is 116 and amylase 187. Magnesium 2.2. CBC shows WBC 14.4, hemoglobin 11.8, Unit #: [id number] #: [id number] Patient: MARTHA MILLRE hematocrit 38, and platelet count of 259,000. Glucose is 186. Lipid profile shows total cholesterol 133, triglycerides 117, LDL 84, and HDL 26. C-reactive protein is elevated to 4. C-reactive protein on admission was 20.3. Blood cultures done on August 31, 2016, show no growth x2. IMAGING: CT scan of the abdomen without contrast, most recent one done on September 08, 2016, shows re-demonstration of inflammatory change left upper quadrant of the abdomen probably related to acute pancreatitis in the tail of the pancreas. There are organized pseudocysts in the left upper quadrant new compared with the prior and detailed above. Multifocal new hypodense lesions scattered throughout the liver, nonspecific, but their rapid development favors against malignancy. These could be multifocal hepatic abscesses. Chest x-ray done on September 06, 2016, shows increased density in the left base consistent with minimal atelectasis or infiltrate. Please note, patient has had three CT scans of the abdomen in the hospital. HOSPITAL COURSE Ms. Martha Miller is a 66-year-old obese female who was admitted with the complaint of abdominal pain. There was a question of diverticulitis. Patient was admitted to telemetry unit and diagnosed with acute on chronic abdominal pain, acute pancreatitis, leukocytosis, and possible diverticulitis. Patient was started on antibiotics. Dr. Sahu was consulted. Patient recently had EGD and colonoscopy done on August 25, 2016, which showed a hiatal hernia, esophageal ring that is acquired, small ulcer in the hernia sac, gastritis with erosions, and normal duodenum and distal duodenum. Colonoscopy was completed to cecum with good prep and showed diverticulosis, moderate internal hemorrhoids, and no polyps, masses, or colitis. [facility] was also consulted for the acute abdomen, but that was most likely from pancreatitis. Patient has continued on IV fluid hydration, pain management, and antiemetics, but has not improved much. Patient was started on TPN. Patient tried clear liquids, but that made her abdominal pain worse. Patient still has leukocytosis. Repeat CT scan of the abdomen shows worsening of pancreatitis, possible liver abscesses, and development of pseudocysts. Dr. Sahu has talked to Dr. Cruz. Patient will be transferred to [facility] for further treatment and management. During hospitalization, patient did have acute hypoxic respiratory failure and was diagnosed with pneumonia. Dr. Vasquez was consulted, and patient is on IV antibiotic, oxygen, and nebulizer treatment. Patient does have a history of chronic bronchitis and possible COPD. Patient is stable and is being transferred to [facility]. PHYSICAL EXAMINATION ON DISCHARGE VITAL SIGNS: Blood pressure is 135/80, respiratory rate 18, pulse 59, temperature 97.5, and oxygen saturation is 91%. HEENT: Head is normocephalic. CHEST: Fair air entry. Decreased at the bases. Rales are positive. CARDIOVASCULAR: S1 and S2 positive. Regular rhythm. ABDOMEN: Tenderness is present in left upper quadrant and right upper quadrant. Bowel sounds are positive. EXTREMITIES: Trace edema. DISCHARGE INSTRUCTIONS Unit #: [id number] #: [id number] Patient: MARTHA MILLER 1. Patient is being discharged to [facility] under Dr. Marinelli's care. 2. Dr. Arnold Cruz to consult. 3. Infectious Disease to consult. 4. Continue pain management, hydration, and antiemetics. 1. Dictated by... Marcell Lemon TD: 09/09/2016 14:09 JOB #: [id number] DISCHARGE SUMMARY Page 1 of 1 X Deborah Alonzo MD DISCHARGE SUMMARY
--- NOTE | ~2016-08-31 | XA166 ---
[facility] A Service of [facility] & [facility] RADIOLOGY TEXT RESULTS PATIENT: BIANCA MILLER LOCATION: C3A 303- : 50 UNIT #: [id number] AGE: [address]: Deborah Alonzo MD SEX: F ORDER DR: [id number] [facility] [address] [place], [place] [address] [id number] I MR#: [id number] Acc #: [id number] NAME: BIANCA MILLER : 1950 SEX: F STUDY DATE/TIME: 09/03/2016 14:53 UNIT: C3A PCU ROOM: 303 STUDY DESCRIPTION: XA PICC Line Placement WO Port Attending Physician: Deborah Alonzo M.D. Ordering Physician: Raghavendra Sahu M.D. Primary Care Physician: Alisa Negro M.D. MEDICAL IMAGING REPORT This report is preliminary unless electronic signature is present EXAM PICC line insertion; 09/03/2016. HISTORY IV access needed. PRE-PROCEDURE The procedure was explained to the patient and/or patient utility sales representative including risks, benefits, potential complications and potential for alternative forms of treatment. Informed consent was obtained, and prior to initiating the procedure a formal timeout procedure was performed. PROCEDURE Using full standard sterile barrier technique, including caps, gowns, gloves, masks, as well as sterile skin preparation and standard sterile draping, the right arm was prepped and draped in the usual fashion, and real-time sterile ultrasound guidance was used to localize an arm vein and to confirm vessel patency. A hard copy ultrasound image was recorded. After local anesthesia with 1% Xylocaine, the vein was punctured using real-time sterile ultrasound guidance, and an 0.018 guidewire was advanced into the superior vena cava, using fluoroscopic guidance. A 5-[place]izen [place] dual-lumen PICC was then measured and deployed with the tip positioned in the superior vena cava. The position of the line was documented with a radiographic image. The line was secured in place with an adhesive dressing and an antibiotic patch was applied. Total fluoro time was 0.1 minutes. IMPRESSION Successful placement of a 5-[place]izen [place] dual-lumen PowerPICC via the right arm under ultrasound and fluoroscopic guidance. The tip of the PICC is in good position in the superior vena cava. [facility] A Service of [facility] RADIOLOGY TEXT RESULTS PATIENT: BIANCA MILLER LOCATION: [facility] 303-01 : 50 UNIT #: [id number] AGE: [address]: Deborah Alonzo MD SEX: F ORDER DR: A single fluoroscopic spot image was obtained. Dictated by... Des Parsons M.D. THIS IS AN ELECTRONICALLY VERIFIED REPORT Des Parsons M.D. at 09/08/2016 10:05 AM MAGDALENO/merrill TD: 09/03/2016 19:13 JOB #: [id number] MEDICAL IMAGING REPORT Page 1 of 1 COPY
--- NOTE | ~2016-08-31 | A ---
[facility] Therapy DATE: 09/03/16 Patient: BIANCA ANGELA Physician: MIRIAN Address: [address] Room/Bed: [address] [place] [address], Zip: [place] [address] Admit Date: 08/31/16 Date of : 50 Height: 5 5 Weight: 238 108.4 NUTRITIONAL ASSESSMENT: REASON: TPN 66 y/o female admitted for pancreatitis, abd pain PMH: diverticulitis, CAD, GERD, HLD, ?COPD Anthropometrics: ht: 5'5" wt: 238# (108 kg) BMI 39 Labs: Alb 3.0, Lip 158, GFR 58.7 Meds: TPN (per pharmacy), phenergan, Vitamin D, lovenox, lipitor, zosyn, dextrose 5% I/O & Bowel function: 1260/1300. BM 09/01 Skin Integrity: Redness- BLE, abd folds. Edema- BLE Estimated Nutrition Needs: 0644-2806 kcal (20-25 kcal/kg) 108-140 g protein (1.0-1.3 g/kg) fluids consistent with kcal needs or per MD Diet: NPO Assessment: Chart reviewed, events noted. Pt admitted for pancreatitis. RD spoke with pharmacist regarding TPN, as pt is off of floor at time of RD visit. RD spoke with RN, and the pt is currently getting a PICC line placed for TPN access. PMH noted above. RD will follow up for patient interview, please see recommendation. Dx: Inadequate oral intake r/t current condition, pancreatitis AEB NPO status. Intervention: 1. NPO 2. Enteral Nutrition vs TPN Monitoring, Evaluation and Goals: 1. TPN; Once initiated, provide >80% of goal. 2. Labs; Amylase, Lipase, Trigylcerides 2. GI; promote regular GI function Recommendations: 1. Once medically feasible, RD recommending to attempt enteral nutrition per ASPEN guidelines. If enteral nutrition ordered, begin enteral nutrition support of Vital 1.5 @ [facility] Therapy DATE: 09/03/16 Patient: BIANCA ANGELA Physician: MIRIAN Address: [address] [facility] [facility] Room/Bed: [address] [facility], Zip: [place] [address] Admit Date: 08/31/16 Date of : [birth year] Height: 5 5 Weight: 238 108.4 15 mL/hr and advance 20 mL q 8 hours to goal rate of 70 mL/hr x 24 hours. This will provide 2520 kcal, 113 g protein, 1277 mL free h20. Free water flushes per MD. 2. If enteral nutrition not tolerated/not appropriate for this pt, begin TPN (dextrose 25%) at low rate, gradually advancing to goal rate of 95 mL/hr x 24 hours (pharmacy dosing). This will provide: 1938 non-protein kcal, 2395 total kcal, and 114 g protein. (GUR= 3.65) Monitor glucose and electrolyte levels closely 3. Monitor triglyceride level to determine lipid needs. Not recommending to cycle lipids at this time d/t pancreatitis. 4. Once medically feasible, advance the pt to a clear liquid diet as tolerated. RD will f/u per protocol as pt is at moderate/severe nutritional risk. Respectfully, MANUEL CORDERO, international first officer Chacha Spaulding, RD, LD Food and Nutrition[facility] Services [facility] cc: client file
--- NOTE | ~2016-08-31 | HP ---
Unit #: [id number] #: [id number] Patient: BIANCA MILLER [id number] [place], [place] [address] [id number] I MR#: [id number] NAME: BIANCA MILLER ROOM: 303 Age: 66 Sex: F Admission Date: 08/31/2016 : 1950 Attending Physician: Deborah Alonzo M.D. Primary Care Physician: Alisa Negro M.D. HISTORY AND PHYSICAL CHIEF COMPLAINT Abdominal pain. HISTORY OF PRESENT ILLNESS Ms. Thomas is a 66-year-old female who is known to me from previous admission. The patient was admitted in May for the same kind of reason and she was diagnosed with acute diverticulitis, the reason for abdominal pain. The patient was doing well, although still in some pain, until she had EGD and colonoscopy done, which was done on 08/25/[address] Sahu. The patient was found to have hiatal hernia, gastritis and diverticulosis and moderate internal hemorrhoids. There was no evidence of any colitis. According to the patient, the pain was getting worse, so she came to ER for further evaluation. Patient is also having some dry heaving. Also, complains of constipation alternating with diarrhea. She has had abdominal surgery in the past for small bowel obstruction. No complaint of dizziness. No complaint of passing out. PAST MEDICAL HISTORY 1. Diverticulosis. 2. Coronary artery disease. 3. History of chronic bronchitis, possible COPD. 4. History of percutaneous coronary intervention and stent placement. 5. History of hyperlipidemia. 6. History of cataract. 7. History of skin cancer. 8. History of GERD and hiatal hernia. SOCIAL HISTORY The patient lives at home with her grandson who has started working just last week. She has history of smoking but according to her has quit. No history of alcohol abuse or drug abuse. FAMILY HISTORY Not significant. ALLERGIES Morphine causes itching. MEDICATIONS Home medications are being reconciled at this time. REVIEW OF SYSTEMS As per history of presenting illness. Unit #: [id number] #: [id number] Patient: BIANCA MILLER PHYSICAL EXAMINATION GENERAL: The patient is lying in bed, does not seem to be in any respiratory distress. VITAL SIGNS: Blood pressure is 113/65, respiratory rate 20, pulse is 84, temperature 97.9, oxygen saturation is 94%. HEENT: Head is normocephalic. Eye movements are normal. Normal conjunctivae. No conjunctival congestion. NECK: Supple. No carotid bruit. Trachea is in midline. CHEST: Fair air entry. No additional sounds. CARDIOVASCULAR: S1, S2 positive. Regular rhythm. ABDOMEN: Tender. There is a generalized tenderness, more on the left upper quadrant. A scar from the previous surgery is present in middle of the abdomen. EXTREMITIES: Negative edema. CENTRAL NERVOUS SYSTEM: Patient is awake, alert, oriented x3. No focal neurological deficit. DIAGNOSTIC STUDIES LABORATORY: Sodium 132, potassium 4.3, chloride 99, BUN 10, creatinine 0.8. Liver enzymes are stable. Lipase is elevated to 146. WBC 26.3, hemoglobin 14.7, hematocrit 45.8, and platelet count 236,000. Lactic acid 1.9. Urinalysis shows 2+ blood, 2+ protein. No bacteria. Blood cultures are negative so far. ASSESSMENT The patient is being admitted to telemetry unit with: 1. Acute on chronic abdominal pain. 2. Acute pancreatitis, etiology is not known. 3. Leukocytosis. 4. History of diverticulosis. 5. History of coronary artery disease, status post percutaneous coronary intervention. 6. History of abdominal surgery in the past. PLAN 1. Admit to telemetry unit. 2. Dr. Sahu has been consulted. 3. IV antibiotics are being started. 4. IV Protonix is being started. 5. IV pain medications are none. 6. IV antiemetics will be given to patient for management. 7. IV fluids are being started. 8. Stool for Clostridium difficile will be done. 9. Lab workup will be drawn again tomorrow morning. 10. Amylase and lipase will be done in the morning. Plan of care has been discussed with patient. Please refer to progress note for further orders. ADDITIONAL JOB # [id number] Dictated by Marcell Lemon TD: 09/01/2016 11:26 Unit #: [id number] #: [id number] Patient: BIANCA MILLER JOB #: [id number] HISTORY AND PHYSICAL Page 1 of 1 X Deborah Alonzo MD HISTORY AND PHYSICAL
--- NOTE | ~2016-08-31 | CT4 ---
[facility] A Service of [facility] & [facility] RADIOLOGY TEXT RESULTS PATIENT: BIANCA MILLER LOCATION: [facility] : 50 UNIT #: [id number] AGE: [address]: Mendel Clemons MD SEX: F ORDER DR: [id number] [facility] [address] [place], [place] [address] [id number] MR#: [id number] Acc #: [id number] NAME: BIANCA MILLER : 1950 SEX: F STUDY DATE/TIME: 08/31/2016 17:24 UNIT: [facility] ROOM: STUDY DESCRIPTION: CT Abd and Pelv Wo Cont Attending Physician: Mendel Clemons M.D. Ordering Physician: Mendel Clemons M.D. Primary Care Physician: Alisa Negro M.D. MEDICAL IMAGING REPORT This report is preliminary unless electronic signature is present EXAM Abdomen and pelvis CT, no contrast, 08/31/2016. INDICATION 66-year-old female with abdominal pain. Pain in the left lower and left upper quadrant. Distension since 08/25/2016. History of bowel obstruction, appendectomy, kidney stones, cholecystectomy. TECHNIQUE Noncontrast abdomen and pelvis CT was performed. This CT exam was performed with one or more of the following radiation dose reduction techniques: automatic exposure control, adjustment of mA and/or kV according to patient size, and iterative reconstruction. COMPARISON 05/18/[address] ABDOMEN: Exam markedly degraded by noncontrast technique. There is some atelectatic change in the right lung base. Trace left effusion. Consolidation in the left lower lobe, either representing atelectasis or potentially pneumonia. Correlate clinically. There is no pericardial effusion. Small hiatal hernia. Aorta demonstrates atherosclerotic change. There is abnormal stranding in the left upper quadrant. This involves the gastric fundus and proximal body stomach and there is also inflammatory change involving the tail of the pancreas and the adjacent splenic flexure of the colon. The nidus for the inflammatory change is not clear but is favored to represent acute inflammatory change involving the tail of the pancreas and acute pancreatitis. The tail of the pancreas is full measuring up to 2.7 cm and this represents a change from the prior study. Correlate with amylase and STS. [facility] A Service of [facility] RADIOLOGY TEXT RESULTS PATIENT: BIANCA MILLER LOCATION: [facility] : 50 UNIT #: [id number] AGE: [address]: Mendel Clemons MD SEX: F ORDER DR: lipase levels. This cannot be further assessed with noncontrast technique but is favored to represent acute pancreatitis. Possibility of gastritis or colitis with secondary involvement of the pancreas are both also differential considerations. At this point, there is no drainable fluid collection or bowel obstruction. There are scattered diverticula present and diverticulitis and secondary involvement of the stomach and pancreas are also in the differential. When clinically appropriate, standard CT with oral and IV contrast would likely be useful for further characterization and assessment of the pancreatic tail and to exclude the possibility of a pancreatic mass. The spleen demonstrates granulomatous change and there is also granulomatous change of the adrenal glands. No pancreatic ductal dilatation. Gallbladder is surgically absent. Liver unremarkable and the right kidney is normal. There is some new stranding involving the perirenal space on the left, likely reflecting secondary inflammatory change from the adjacent left upper quadrant process. Urinalysis, however, would be complimentary to exclude pyelonephritis or ascending urinary tract infection. CT PELVIS: Bladder unremarkable. Small amount of free fluid in the pelvis. No drainable fluid collection. There is intermittent diverticulosis of the rectosigmoid colon. No bowel obstruction at this time. Appendix surgically absent by history. Inguinal canals are unremarkable. Osseous structures demonstrate spinal degenerative change of the thoracolumbar spine. There is antegrade listhesis of L5 on S1, unchanged. There is levoscoliosis. IMPRESSION 1. Abnormal examination. There is inflammatory change in the left upper quadrant involving the spleen, stomach, pancreas, and left kidney. The nidus for the inflammatory change is not definitively identified but this is favored to represent acute pancreatitis involving the distal pancreatic tail which demonstrates interval change in fullness up to 2.7 cm. Differential would also technically include the possibility of gastritis or splenic flexure colitis or diverticulitis with secondary involvement of the pancreas. Correlation with amylase and lipase levels is recommended. There is no drainable fluid collection or bowel obstruction at this time. The patient would benefit from an oral and IV contrast CT for further assessment when clinically appropriate. 2. The inflammatory change of the left kidney is favored to be secondary to the left upper quadrant process. Correlation with urinalysis is however recommended as described above. 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 3. Trace left effusion. Bibasilar atelectasis or potentially pneumonia left greater than right. 4. Small hiatal hernia. 5. Small amount of free fluid in the pelvis. [facility] A Service of [facility] RADIOLOGY TEXT RESULTS PATIENT: BIANCA MILLER [id number] [birth year] UNIT #: [id number] AGE: [address]: Mendel Clemons MD SEX: F ORDER DR: 6. Surgical absence of the appendix and gallbladder. 7. Degenerative change of the thoracolumbar spine with antegrade listhesis of L5 on S1. STAT * RESULT Dictated by... Jordon Rosario M.D. THIS IS AN ELECTRONICALLY VERIFIED REPORT Jordon Rosario M.D. at 08/31/2016 7:02 PM JUNIOR/marcela TD: 08/31/2016 17:57 JOB #: [id number] MEDICAL IMAGING REPORT Page 1 of 1 COPY
--- NOTE | ~2016-08-31 | CT4 ---
[facility] A Service of [facility] & [facility] RADIOLOGY TEXT RESULTS PATIENT: BIANCA MILLER LOCATION: [facility] 303- : 50 UNIT #: [id number] AGE: [address]: Deborah Alonzo MD SEX: F ORDER DR: [id number] [facility] [address] [place], [place] [address] [id number] I MR#: [id number] Acc #: [id number] NAME: BIANCA MILLER : 1950 SEX: F STUDY DATE/TIME: 09/03/2016 20:15 UNIT: C3A PCU ROOM: [facility] STUDY DESCRIPTION: CT Abd and Pelv Wo Cont Attending Physician: Deborah Alonzo M.D. Ordering Physician: Shawn Marinelli M.D. Primary Care Physician: Alisa Negro M.D. MEDICAL IMAGING REPORT This report is preliminary unless electronic signature is present EXAM CT abdomen and pelvis, noncontrast, 09/03/2016. HISTORY 66-year-old female referred for follow up of reported acute pancreatitis. TECHNIQUE CT examination of the abdomen and pelvis was performed without oral or IV contrast, as requested. Lack of contrast significantly limits evaluation of the pancreas and GI tract. This CT exam was performed with one or more of the following radiation dose reduction techniques: automatic exposure control, adjustment of mA and/or kV according to patient size, and iterative reconstruction. FINDINGS ABDOMEN FINDINGS: The images again demonstrates acute inflammatory process centered on the pancreatic tail with ill-defined fluid and inflammatory stranding throughout the left upper quadrant along the greater curvature of the stomach and splenic hilum. The degree of adjacent gastric inflammation appears increased since the prior study with increasing gastric wall thickening. The head and body of the pancreas appear normal, and there is no visible pancreatic duct dilatation. Note is made of extensive left upper quadrant mesenteric collateral veins which may indicate occlusion of the splenic vein, but this cannot be assessed without contrast administration. Cholecystectomy. No significant bile duct dilatation. Liver and spleen are normal in size. Tiny amount of ascites adjacent to the liver and in the low pelvis. The stomach is nondistended. Both kidneys are negative with no evidence of urinary obstruction. Normal-caliber abdominal aorta. [facility]. [facility] A Service of [facility] & [facility] RADIOLOGY TEXT RESULTS PATIENT: BIANCA MILLER LOCATION: C3A 303-01 : 50 UNIT #: [id number] AGE: [address]: Deborah Alonzo MD SEX: F ORDER DR: PELVIS FINDINGS: Sigmoid diverticulosis. Uterus, adnexal regions, bladder and rectum are negative. The lung base images again show consolidation and volume loss in the left upper lobe and a tiny left pleural effusion. IMPRESSION 1. Continued CT evidence of an acute inflammatory process in the left upper quadrant centered on the pancreatic tail as described above. Acute pancreatitis is likely. Correlate with laboratory findings. There is slightly increased peripancreatic inflammation since the recent study of 08/31/2016, and increased adjacent gastric wall thickening. The head and body of the pancreas appear normal, and there is no pancreatic duct dilatation. 2. Cholecystectomy. No bile duct dilatation. 3. Extensive mesenteric collateral veins are seen in the left upper quadrant. This could be secondary evidence of splenic vein occlusion, but more detailed evaluation is not possible without IV contrast administration. 4. Left lower lobe consolidation and volume loss and small left pleural effusion, unchanged. Small-volume ascites. 5. Colonic diverticulosis. Dictated by... Gordy Sy M.D. THIS IS AN ELECTRONICALLY VERIFIED REPORT Gordy Sy M.D. at 09/04/2016 4:55 PM TEVIN/merrill TD: 09/04/2016 01:09 JOB #: [id number] MEDICAL IMAGING REPORT Page 1 of 1 COPY
[2016-08-31 15:34] LABS: BASOPHIL# 0.1 X10e3 (0-0.3); BASOPHIL% 0.3 % (0-2.5); HEMATOCRIT 45.8 % (35.0-45.0); HEMOGLOBIN 14.7 gm/dL (12.0-16.0); LYMPHOCYTE# 1.5 X10e3 (1.0-3.5); LYMPHOCYTE% 5.6 % (17.0-45.0); MEAN CELL VOLUME 87.8 FL (83-96); MEAN CORPUSCULAR HEMOGLOBIN 28.1 PG (28-34); MEAN PLATELET VOLUME 8.4 FL (6.5-11.5); MONOCYTE# 2.2 X10e3 (0-1.0); MONOCYTE% 8.2 % (3.0-12.0); NEUTROPHIL# 22.6 X10e3 (1.5-7.1); NEUTROPHIL% 85.9 % (40-75); PLATELET COUNT 236 X10e3 (140-420); RED BLOOD COUNT 5.22 X10e (3.90-5.30); RED CELL DISTRIBUTION WIDTH 15.2 % (11.0-15.5); WHITE BLOOD COUNT 26.3 X10e3 (4.0-10.5)
[2016-08-31 15:36] LABS: DIFF IND YES
[2016-08-31 15:58] LABS: ALBUMIN SERUM 3.6 g/dL (3.5-5.0); BILIRUBIN, DIRECT 0.2 mg/dL (0.0-0.2); BILIRUBIN,TOTAL 1.2 mg/dL (0.2-2.0); BUN/CREATININE RATIO 12.5; CALCIUM SERUM 9.3 mg/dL (8.4-10.2); CREATININE SERUM 0.8 mg/dL (0.6-1.4); GLOM FILT RATE Estimated 76.9 mL/min (>60); POTASSIUM 4.3 mmol/L (3.5-5.1)
[2016-08-31 16:01] LABS: PLATELET ESTIMATE NORMAL (NORMAL)
[2016-08-31 19:43] LABS: URINE SOURCE CLEAN CATCH
[2016-08-31 19:48] LABS: URINE APPEARANCE CLEAR; URINE BILIRUBIN NEG (NEG); URINE BLOOD 2+ (NEG); URINE COLOR DK YELLOW; URINE GLUCOSE NEG (NEG); URINE KETONE NEG (NEG); URINE LEUKOCYTE ESTERASE NEG (NEG); URINE NITRATE NEG (NEG); URINE PH 5.5 (5-8); URINE PROTEIN 2+ (NEG); URINE SPECIFIC GRAVITY 1.022 (1.003-1.035)
[2016-08-31 19:51] LABS: URINE BACTERIA AUWI NEG (NEGATIVE); URINE SQUAMOUS EPITHELIAL CELL NONE SEEN /[HPF]; UWBCS1 AUWI 0-2 (0-5)
[2016-08-31 20:00] LABS: CULTURE INDICATED? NO
[2016-09-01 05:54] LABS: HEMATOCRIT 42.2 % (35.0-45.0); HEMOGLOBIN 13.5 gm/dL (12.0-16.0); MEAN CORPUSCULAR HEMOGLOBIN 28.5 PG (28-34); MEAN CORPUSCULAR HGB CONC 32.1 g/dL (30-36); MEAN PLATELET VOLUME 8.8 FL (6.5-11.5); RED BLOOD COUNT 4.74 X10e (3.90-5.30); WHITE BLOOD COUNT 22.8 X10e3 (4.0-10.5)
[2016-09-01 06:46] LABS: BUN/CREATININE RATIO 16.25; CALCIUM SERUM 9.1 mg/dL (8.4-10.2); CREATININE SERUM 0.8 mg/dL (0.6-1.4); GLOM FILT RATE Estimated 76.9 mL/min (>60); POTASSIUM 4.4 mmol/L (3.5-5.1)
[2016-09-02 06:18] LABS: HEMATOCRIT 39.1 % (35.0-45.0); HEMOGLOBIN 12.4 gm/dL (12.0-16.0); MEAN CELL VOLUME 90.3 FL (83-96); MEAN CORPUSCULAR HEMOGLOBIN 28.6 PG (28-34); MEAN CORPUSCULAR HGB CONC 31.7 g/dL (30-36); MEAN PLATELET VOLUME 9.2 FL (6.5-11.5); RED BLOOD COUNT 4.33 X10e (3.90-5.30); WHITE BLOOD COUNT 17.6 X10e3 (4.0-10.5)
[2016-09-02 06:45] LABS: ALBUMIN SERUM 2.8 g/dL (3.5-5.0); BILIRUBIN,TOTAL 0.6 mg/dL (0.2-2.0); BUN/CREATININE RATIO 13.33; CALCIUM SERUM 8.9 mg/dL (8.4-10.2); CREATININE SERUM 0.9 mg/dL (0.6-1.4); GLOM FILT RATE Estimated 66.7 mL/min (>60); POTASSIUM 4.2 mmol/L (3.5-5.1); PROTEIN TOTAL SERUM 6.6 g/dL (6.0-8.3)
[2016-09-03 06:13] LABS: HEMATOCRIT 39.9 % (35.0-45.0); HEMOGLOBIN 12.5 gm/dL (12.0-16.0); MEAN CORPUSCULAR HEMOGLOBIN 28.1 PG (28-34); MEAN CORPUSCULAR HGB CONC 31.2 g/dL (30-36); RED BLOOD COUNT 4.44 X10e (3.90-5.30); RED CELL DISTRIBUTION WIDTH 15.2 % (11.0-15.5); WHITE BLOOD COUNT 15.9 X10e3 (4.0-10.5)
[2016-09-03 07:01] LABS: BILIRUBIN,TOTAL 0.9 mg/dL (0.2-2.0); CALCIUM SERUM 8.9 mg/dL (8.4-10.2); GLOM FILT RATE Estimated 58.7 mL/min (>60); POTASSIUM 4.6 mmol/L (3.5-5.1); PROTEIN TOTAL SERUM 6.7 g/dL (6.0-8.3)
[2016-09-04 05:44] LABS: HEMATOCRIT 37.6 % (35.0-45.0); HEMOGLOBIN 11.7 gm/dL (12.0-16.0); MEAN CELL VOLUME 89.3 FL (83-96); MEAN CORPUSCULAR HEMOGLOBIN 27.9 PG (28-34); MEAN CORPUSCULAR HGB CONC 31.2 g/dL (30-36); MEAN PLATELET VOLUME 8.7 FL (6.5-11.5); RED BLOOD COUNT 4.21 X10e (3.90-5.30); RED CELL DISTRIBUTION WIDTH 15.3 % (11.0-15.5)
[2016-09-04 06:42] LABS: ALBUMIN SERUM 2.4 g/dL (3.5-5.0); BILIRUBIN,TOTAL 0.7 mg/dL (0.2-2.0); BUN/CREATININE RATIO 8.57; CALCIUM SERUM 8.4 mg/dL (8.4-10.2); CREATININE SERUM 0.7 mg/dL (0.6-1.4); GLOM FILT RATE Estimated 90.3 mL/min (>60); PROTEIN TOTAL SERUM 5.4 g/dL (6.0-8.3)
[2016-09-05 06:55] LABS: HEMATOCRIT 35.8 % (35.0-45.0); HEMOGLOBIN 11.2 gm/dL (12.0-16.0); MEAN CELL VOLUME 89.5 FL (83-96); MEAN CORPUSCULAR HGB CONC 31.3 g/dL (30-36); MEAN PLATELET VOLUME 8.7 FL (6.5-11.5); RED BLOOD COUNT 4.01 X10e (3.90-5.30); WHITE BLOOD COUNT 15.2 X10e3 (4.0-10.5)
[2016-09-05 07:33] LABS: ALBUMIN SERUM 2.4 g/dL (3.5-5.0); BILIRUBIN,TOTAL 0.4 mg/dL (0.2-2.0); CALCIUM SERUM 8.5 mg/dL (8.4-10.2); CREATININE SERUM 0.5 mg/dL (0.6-1.4); GLOM FILT RATE Estimated 100.9 mL/min (>60); POTASSIUM 3.9 mmol/L (3.5-5.1)
[2016-09-05 07:43] LABS: MAGNESIUM 1.9 mg/dL (1.6-3.0); PHOSPHOROUS 2.7 mg/dL (2.5-4.6)
[2016-09-06 04:27] LABS: ARTERIAL BLD GAS O2 SATURATION 93.2 % (90.0-100.0); ARTERIAL BLOOD GAS CARBOXY HB 0.8 %sat (0.0-9.0); ARTERIAL BLOOD GAS HCO3 36.1 mmol/L; ARTERIAL BLOOD GAS MET HB 0.8 %sat (0.0-2.0); ARTERIAL BLOOD GAS pH 7.365 (7.350-7.450)
[2016-09-06 04:28] LABS: ARTERIAL BLOOD GAS ALLEN TEST NORMAL; ARTERIAL BLOOD GAS ART SITE LEFT RADIAL; ARTERIAL BLOOD GAS DELIVERY NASAL CANNULA; ARTERIAL BLOOD GAS PCO2 63.3 mmHg (35.0-45.0); ARTERIAL BLOOD GAS PO2 76.3 mmHg (80.0-100); ARTERIAL DRAW? YES
[2016-09-06 05:46] LABS: HEMATOCRIT 34.9 % (35.0-45.0); HEMOGLOBIN 10.9 gm/dL (12.0-16.0); MEAN CELL VOLUME 89.2 FL (83-96); MEAN CORPUSCULAR HEMOGLOBIN 27.9 PG (28-34); MEAN CORPUSCULAR HGB CONC 31.2 g/dL (30-36); MEAN PLATELET VOLUME 8.5 FL (6.5-11.5); RED BLOOD COUNT 3.91 X10e (3.90-5.30); WHITE BLOOD COUNT 13.9 X10e3 (4.0-10.5)
[2016-09-06 06:43] LABS: ALBUMIN SERUM 2.5 g/dL (3.5-5.0); ALKALINE PHOSPHATASE 130 U/L (32-92); ALT (SGPT) 14 U/L (10-40); AMYLASE 195 U/L (0-46); AST (SGOT) 22 U/L (10-42); BLOOD UREA NITROGEN 6 mg/dL (9-23); CALCIUM SERUM 8.7 mg/dL (8.4-10.2); CARBON DIOXIDE 33 mmol/L (22-31); CHLORIDE 101 mmol/L (100-111); CREATININE SERUM 0.6 mg/dL (0.6-1.4); GLUCOSE FASTING 152 mg/dL (70-110); LIPASE 162 U/L (22-51); POTASSIUM 4.1 mmol/L (3.5-5.1); SODIUM 140 mmol/L (135-145)
[2016-09-06 06:44] LABS: BILIRUBIN,TOTAL <0.1 mg/dL (0.2-2.0)
[2016-09-06 16:37] LABS: URINE APPEARANCE CLEAR; URINE BILIRUBIN NEG (NEG); URINE BLOOD TRACE (NEG); URINE COLOR YELLOW; URINE GLUCOSE NEG (NEG); URINE KETONE NEG (NEG); URINE LEUKOCYTE ESTERASE NEG (NEG); URINE NITRATE NEG (NEG); URINE PH 7.5 (5-8); URINE PROTEIN NEG (NEG)
[2016-09-06 16:40] LABS: URINE BACTERIA AUWI NEG (NEGATIVE); URINE SQUAMOUS EPITHELIAL CELL NONE SEEN /[HPF]; UWBCS1 AUWI 0-2 (0-5)
[2016-09-07 05:48] LABS: HEMATOCRIT 37.1 % (35.0-45.0); HEMOGLOBIN 11.4 gm/dL (12.0-16.0); MEAN CELL VOLUME 90.3 FL (83-96); MEAN CORPUSCULAR HEMOGLOBIN 27.7 PG (28-34); MEAN CORPUSCULAR HGB CONC 30.7 g/dL (30-36); MEAN PLATELET VOLUME 9.3 FL (6.5-11.5); RED BLOOD COUNT 4.11 X10e (3.90-5.30); RED CELL DISTRIBUTION WIDTH 15.2 % (11.0-15.5); WHITE BLOOD COUNT 14.7 X10e3 (4.0-10.5)
[2016-09-07 06:02] LABS: AMYLASE 209 U/L (0-46); LIPASE 160 U/L (22-51)
[2016-09-07 06:24] LABS: BUN/CREATININE RATIO 11.66; CALCIUM SERUM 8.8 mg/dL (8.4-10.2); CREATININE SERUM 0.6 mg/dL (0.6-1.4); MAGNESIUM 2.1 mg/dL (1.6-3.0); PHOSPHOROUS 2.8 mg/dL (2.5-4.6); POTASSIUM 4.4 mmol/L (3.5-5.1)
[2016-09-08 05:12] LABS: HEMATOCRIT 38.1 % (35.0-45.0); MEAN CORPUSCULAR HGB CONC 31.5 g/dL (30-36); MEAN PLATELET VOLUME 9.7 FL (6.5-11.5); RED BLOOD COUNT 4.28 X10e (3.90-5.30); RED CELL DISTRIBUTION WIDTH 14.9 % (11.0-15.5); WHITE BLOOD COUNT 13.7 X10e3 (4.0-10.5)
[2016-09-08 05:57] LABS: ALBUMIN SERUM 2.6 g/dL (3.5-5.0); ALKALINE PHOSPHATASE 125 U/L (32-92); ALT (SGPT) 20 U/L (10-40); AMYLASE 190 U/L (0-46); AST (SGOT) 30 U/L (10-42); BLOOD UREA NITROGEN 9 mg/dL (9-23); CALCIUM SERUM 8.8 mg/dL (8.4-10.2); CARBON DIOXIDE 30 mmol/L (22-31); CHLORIDE 103 mmol/L (100-111); CREATININE SERUM 0.5 mg/dL (0.6-1.4); GLOM FILT RATE Estimated 100.9 mL/min (>60); GLUCOSE FASTING 145 mg/dL (70-110); LIPASE 110 U/L (22-51); POTASSIUM 4.2 mmol/L (3.5-5.1); PROTEIN TOTAL SERUM 6.4 g/dL (6.0-8.3); SODIUM 138 mmol/L (135-145)
[2016-09-08 05:58] LABS: BILIRUBIN,TOTAL <0.1 mg/dL (0.2-2.0)
[2016-09-08 19:53] LABS: CHOLESTEROL 133 mg/dL (0-200); HDL CHOLESTEROL 26 mg/dL (35-95); LDL CHOLESTEROL 84 mg/dL ([, -130]); LDL/HDL RATIO 3 RATIO (0-4); TRIGLYCERIDES 117 mg/dL (10-160)
[2016-09-09 05:57] LABS: HEMOGLOBIN 11.8 gm/dL (12.0-16.0); MEAN CELL VOLUME 88.6 FL (83-96); MEAN CORPUSCULAR HEMOGLOBIN 27.6 PG (28-34); MEAN CORPUSCULAR HGB CONC 31.1 g/dL (30-36); MEAN PLATELET VOLUME 9.6 FL (6.5-11.5); RED BLOOD COUNT 4.29 X10e (3.90-5.30); RED CELL DISTRIBUTION WIDTH 15.3 % (11.0-15.5); WHITE BLOOD COUNT 14.4 X10e3 (4.0-10.5)
[2016-09-09 07:32] LABS: ALBUMIN SERUM 2.6 g/dL (3.5-5.0); BILIRUBIN,TOTAL 0.6 mg/dL (0.2-2.0); BUN/CREATININE RATIO 21.66; CALCIUM SERUM 8.8 mg/dL (8.4-10.2); CREATININE SERUM 0.6 mg/dL (0.6-1.4); MAGNESIUM 2.2 mg/dL (1.6-3.0); PHOSPHOROUS 3.9 mg/dL (2.5-4.6); POTASSIUM 4.4 mmol/L (3.5-5.1); PROTEIN TOTAL SERUM 5.9 g/dL (6.0-8.3)
== END 2016-09-09 19:28 | DRG 438 ==
LOC: CED 14:51 → CEDOF 19:20 → CED 19:34 → C3A PCU 19:34 → CEDOF 21:48 → C3A PCU 21:48
PROVIDERS: Internal Medicine; Physician Assistant Medical; Specialist; Surgery
PROC: 02HV33Z Insertion of Infusion Device into Superior Vena Cava, Percutaneous Approach (ICD-10-PCS; principal; 2016-09-03)
PROC: B518YZA Fluoroscopy of Superior Vena Cava using Other Contrast, Guidance (ICD-10-PCS; 2016-09-03)
PROC: B548ZZA Ultrasonography of Superior Vena Cava, Guidance (ICD-10-PCS; 2016-09-03)
DX: K85.90 Acute pancreatitis without necrosis or infection, unspecified (principal); J96.01 Acute respiratory failure with hypoxia; J15.6 Pneumonia due to other Gram-negative bacteria; J90 Pleural effusion, not elsewhere classified; K74.60 Unspecified cirrhosis of liver; K75.0 Abscess of liver; J98.11 Atelectasis; I82.890 Acute embolism and thrombosis of other specified veins; J44.9 Chronic obstructive pulmonary disease, unspecified; D72.829 Elevated white blood cell count, unspecified; I25.10 Atherosclerotic heart disease of native coronary artery without angina pectoris; Z95.5 Presence of coronary angioplasty implant and graft; G47.33 Obstructive sleep apnea (adult) (pediatric); Z98.49 Cataract extraction status, unspecified eye; Z85.828 Personal history of other malignant neoplasm of skin; Z87.891 Personal history of nicotine dependence; D64.9 Anemia, unspecified; Z68.39 Body mass index [BMI] 39.0-39.9, adult; E66.01 Morbid (severe) obesity due to excess calories; K21.9 Gastro-esophageal reflux disease without esophagitis; K44.9 Diaphragmatic hernia without obstruction or gangrene
CPT/HCPCS: 36415; 36600; 71010; 74022; 74150; 74176; 76705; 76937; 77001; 80048; 80053; 80061; 80076; 81003; 82150; 82803; 82947; 83605; 83690; 83735; 84100; 84134; 84478; 85025; 85027; 86140; 87040; 94010; 94640; 94660; 94664; 94760; 99285; C1751; C9113; J1170; J1650; J1815; J1956; J2185; J2405; J2543; J2550; J3370; J3480